=== PATIENT | male | born 2000 | race Caucasian/White ===

== ENCOUNTER 2020-04-20 22:40 | Emergency (ER) | payer OTHER ==
[2020-04-20] MEDS ORDERED: Ondansetron 4 MG/2 ML SDV IV ONE (22:42)
[2020-04-20] MEDS ORDERED: fentaNYL 50 MCG/ML SDV IVPUSH ONE (22:42)
[2020-04-20] MEDS ORDERED: Sodium Chloride 0.9% 10 ML Syringe FLUSH PRN (22:42)
[2020-04-20] MEDS ORDERED: Iopamidol 612 MG/ML 100 ML Bottle IVPUSH ONE (22:56)
[2020-04-20 23:08] LABS: PTT,PARTIAL THROMBOPLSTIN TIME 25.1 SEC (25.6-32.8)
[2020-04-20 23:10] LABS: CHLORIDE,CL 101 mmol/L (98-107); SODIUM,NA 141 mmol/L (136-145)
[2020-04-20 23:11] LABS: ANION GAP 16.2 mmol/L (10-20)
[2020-04-20] MEDS ORDERED: Potassium Chloride Riders 10 MEQ in Premix Bag 1 BAG IV ONE (23:12)
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
== END 2020-04-20 23:26 | disposition short-term general hospital (02) ==
LOC: VM.ED 22:40
DX: S27.322A Contusion of lung, bilateral, initial encounter (principal); S01.01XA Laceration without foreign body of scalp, initial encounter; S32.9XXA Fracture of unspecified parts of lumbosacral spine and pelvis, initial encounter for closed fracture; S22.42XA Multiple fractures of ribs, left side, initial encounter for closed fracture; S40.012A Contusion of left shoulder, initial encounter; S40.011A Contusion of right shoulder, initial encounter; S50.811A Abrasion of right forearm, initial encounter; S50.312A Abrasion of left elbow, initial encounter; S50.311A Abrasion of right elbow, initial encounter; S50.812A Abrasion of left forearm, initial encounter; I95.89 Other hypotension; E87.6 Hypokalemia; V58.5XXA Driver of pick-up truck or van injured in noncollision transport accident in traffic accident, initial encounter; Y92.411 Interstate highway as the place of occurrence of the external cause
CPT/HCPCS: 36415; 36430; 71045; 72170; 80053; 80307; 83605; 83690; 85025; 85610; 85730; 86850; 86900; 86901; 86920; 86922; 96374; 96375; 99291; G0390; J2405; J3010; J3480; P9016